=== PATIENT | male | born 1975 | race Caucasian/White ===

== ENCOUNTER → 2017-12-21 11:45 | Outpatient (CLI) | payer MEDICAID, SELFPAY ==
--- NOTE | 2017-12-21 11:45 | DT_ITS ---
This patient was seen during an EMR downtime December 18, 2017 - December 25, 2017. This patient may have a combination of paper and electronic documentation or all paper documentation. All documentation is viewable within the e-chart portion of [facility] for each patient visit.
--- NOTE | 2017-12-21 11:55 | MRI_ITS ---
STUDY: MRI LEFT KNEE REASON FOR EXAM: Left knee pain, unsteady gait, prior surgery. TECHNIQUE: Standardized fat and water weighted pulse sequences were obtained in all 3 orthogonal planes. COMPARISON: None. FINDINGS: There is diffuse tearing of the medial meniscus with a fragment displaced superior to the anterior horn of the medial meniscus (proton-density coronal images 24, 25) and a small fragment at the superior aspect of the posterior horn of the medial meniscus (proton-density sagittal image 11). There is peripheral subluxation of the medial meniscus. There is arthrosis of the medial femorotibial compartment with marginal osteophytes and chondral thinning (T2 sagittal image 8). Normal medial femoral condyle and tibial plateau. Normal medial collateral ligamentous complex (MCL). Normal distal semimembranosus, gracilis and semitendinosus tendons. Normal lateral meniscus. Normal hyaline cartilage of the lateral femorotibial compartment. Normal lateral femoral condyle and tibial plateau. Normal proximal tibiofibular articulation. Normal lateral collateral (fibular) ligament. Normal popliteus tendon. Normal biceps femoris tendon. There is a chronic tear of the anterior cruciate ligament (proton-density coronal images 14, 15). Normal posterior cruciate ligament (PCL). Normal congruent patellofemoral articulation. There is arthrosis of the patellofemoral compartment with small marginal osteophytes and partial-thickness chondral loss of the femoral trochlea (T2 sagittal images 13, 14). Normal medial and lateral patellar retinaculum. Normal visualized quadriceps tendon. There are postoperative changes from patellar realignment. Normal Hoffa's fat pad. There is a moderately large joint effusion. There is a mildly thickened medial patellar plica (T2 axial image 13). The soft tissues are unremarkable. The otherwise visualized osseous structures are unremarkable. MRI/Lower Ext Joint Only (Routine) IMPRESSION: Medial meniscal tear. Chronic anterior cruciate ligament tear. Arthrosis of the medial femorotibial and patellofemoral compartments. Joint effusion. Mildly thickened medial patellar plica. Electronically Signed: Ryder M. Burrell, MD at 15:08 EDT Tel , Service support ,
== END ==
PROVIDERS: Family Provider Family Medicine; PCP Family Medicine; Visit Provider Family Medicine
DX: M25.562 Pain in left knee (principal); R26.81 Unsteadiness on feet
CPT/HCPCS: 73721

== ENCOUNTER 2017-12-31 23:25 | Emergency (ER) | payer MEDICAID, SELFPAY ==
[2017-12-31 23:26] VITALS: BP 143/103; PULSE 91; RESP 16; TEMP 36.4; O2SAT 98; BMI 29.0
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
[2017-12-31] MEDS: Ziprasidone IM 20 MG/ML VIAL IM (23:56)
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
--- NOTE | 2017-12-31 23:58 | DCINST.ED_ITS ---
ED Disposition - Plan for ED Patient: Disposition: Home or Assisted Living Chief Complaint: Mental Health Instructions: ED Schizophrenia General Referrals: [facility] [Primary Care Provider] - As soon as possible Additional Instructions: Follow up with the medical operations supervisor of [facility] director for medication adjustments as needed.
[2018-01-01 01:01] VITALS: PULSE 89; RESP 14; O2SAT 98
--- NOTE | 2018-01-01 01:04 | ED.RN ---
REPORT GIVEN TO ECF NURSE AT PT BEDSIDE. PT GIVEN PILLOW, AND IS RESTING COMFORTABLY. THE NURSE FROM THE FACILITY REPORTS IT IS NOT NECESSARY TO CALL [facility] AND GIVE REPORT SINCE SHE WILL BE CARING FOR THE PT.
--- NOTE | 2018-01-01 01:19 | NURSING ---
[facility] WILL BE HERE WITHIN AND HOUR AND HALF TO 2 HOURS
== END 2018-01-01 02:23 | disposition home or self-care (01) ==
LOC: ED 01-01 00:20
PROVIDERS: Emergency Provider Emergency Medicine; Family Provider Family Medicine; PCP Family Medicine
DX: R45.6 Violent behavior (principal); F31.9 Bipolar disorder, unspecified; F20.9 Schizophrenia, unspecified; F43.10 Post-traumatic stress disorder, unspecified; F03.90 Unspecified dementia, unspecified severity, without behavioral disturbance, psychotic disturbance, mood disturbance, and anxiety; Z87.820 Personal history of traumatic brain injury; Z79.82 Long term (current) use of aspirin; Z79.899 Other long term (current) drug therapy
CPT/HCPCS: 96372; 99285; J3486

== ENCOUNTER 2018-01-19 15:42 | Emergency (ER) | payer MEDICAID, SELFPAY ==
[2018-01-19 15:45] VITALS: BP 129/96; PULSE 101; RESP 16; TEMP 36.7; O2SAT 100; BMI 28.9
--- NOTE | 2018-01-19 16:08 | EKG12_ITS ---
Test Reason : Blood Pressure : / mmHG Vent. Rate : 118 BPM Atrial Rate : 118 BPM P-R Int : 130 ms QRS Dur : 100 ms QT Int : 320 ms P-R-T Axes : 042 038 016 degrees QTc Int : 448 ms Poor data quality, interpretation may be adversely affected Sinus tachycardia Otherwise normal ECG Confirmed by FRITZ THAPA, GABRIELE ([id number]), staff editor DEAN VELAZQUEZ ([id number]) on 01/22/2018 3:22:23 PM Referred By: INO Confirmed By:GABRIELE HU MD
--- NOTE | 2018-01-19 16:13 | ED.DCSUM_ITS ---
- ER Visit Summary Date of Service: 01/19/18 Chief Complaint: Agitation History of Present Illness: The patient is a 42 M with a history of schizoaffective disorder and paranoid delusions. He has been increasingly agitated and combative at his intermediate today. He received 5 mg of Haldol and had no improvement. Patient has no complaints other than he wants to leave and go back to [place]. Denies suicidal thoughts. Physical Examination: Vital signs unremarkable. Afebrile. Head and neck atraumatic. Heart regular. Lungs clear. Abdomen soft. Moves all extremities. No obvious trauma or deformities. No focal or lateralizing neurologic findings grossly. He is mildly agitated, but redirectable. Test Results: Laboratory studies, urinalysis, and EKG pending. Emergency Department Course and Treatment: Patient has a history of paranoid schizoaffective disorder. He is increasingly agitated and combative. He was agreeable to treatment with IM Ativan and Benadryl. Will provide medical clearance and discuss with crisis counselor. Laboratory studies, tox, and alcohol were unremarkable. Patient refused EKG because the leads were about his chest hair. I have low suspicion for dysrhythmia or emergency abnormalities on his EKG. I do not believe it is appropriate to sedate him or perform this against as well. Patient was monitored and had no chest pain, shortness of breath, palpitations, or any other symptoms. Crisis counselor spoke with the patient. I believe he would benefit from hospitalization. We are having trouble reaching his guardian. Once we get a hold a guardian, he may be transferred for further psychiatric care. He is cleared from a medical standpoint. Treatment Plan: As above Disposition: Transfer pending crisis evaluation Impression: 1. Psychosis This note was generated with [employer] dictation software. It may contain incorrect words, spelling, and punctuation that were not noted in review of the chart prior to signing ED Disposition - Plan for ED Patient: Chief Complaint: Mental Health Referrals: [facility] [Primary Care Provider] -
--- NOTE | 2018-01-19 16:18 | NURSING ---
NO OLD EKGS
[2018-01-19] MEDS: DiphenhydrAMINE 50 MG/ML Syringe 25 MG IM (16:20)
[2018-01-19] MEDS: LORazepam 2 MG/ML Syringe IM (16:20)
[2018-01-19 16:26] LABS: Bacteria 0 SEEN /hpf (None Seen); Mucous, Urine 0 SEEN /hpf (<or=2+); Red Blood Cells-Urine 0 SEEN /hpf (0-5); Squamous Epithelial Cells - UA 0 SEEN /hpf (0-5); White Blood Cells 0 SEEN /hpf (0-5)
[2018-01-19 16:40] LABS: Color, Urine Yellow (Yellow); Glucose, Dipstick Normal (Normal); Ketone-Dipstick Negative (Negative); Leukocyte Esterase-Dipstick Negative /ul (Negative); Nitrite-Dipstick Negative (Negative); Occult Blood-Urine Negative /ul (Negative); Protein-Dipstick 15 mg/dl (Negative); Urine Bilirubin Dipstick Negative (Negative); Urine Clarity Clear (Clear); Urine Urobilinogen Normal (Normal)
--- NOTE | 2018-01-19 16:50 | CPS ---
Patient refusing EKG at this time. Dr Terrazas notified.
[2018-01-19 17:04] LABS: Absolute Lymphocyte Count 1.34 X10^3/ul (0.83-4.51); Basophil# 0.01 X10^3/uL; Basophil% 0.2 % (0-1); Eosinophil# 0.06 X10^3/uL; Hematocrit 37.7 % (40-54); Hemoglobin 13.4 g/dl (13.0-16.5); Lymphocyte # 1.34 X10^3/ul (4.0); Lymphocyte % 22.2 % (19-41); Mean Corp Hgb Conc 35.5 g/gl (32-36); Mean Corpuscular Hgb 30.2 pg (27.0-32.0); Mean Corpuscular Volume 84.9 fL (80-94); Mean Platelet Vol. 9.5 fl (6.2-12.0); Monocyte# 0.63 X10^3/uL; Monocyte% 10.4 % (0-10); Neutrophil # 3.99 X10^3/uL (2.7-7.7); POSITIVE COUNT NO; POSITIVE DIFFERENTIAL NO; POSITIVE MORPHOLOGY NO; Platelet Count 164 K/mm3 (150-450); RBC Distribution Width CV 13.5 % (11.6-14.6); RBC Distribution Width SD 41.9 fl (35.1-43.9); Red Blood Count 4.44 M/mm3 (4.6-6.2)
[2018-01-19 17:09] LABS: ALB/GLOB Ratio 1.2 RATIO (0.9-2.4); AST(SGOT) 26 U/L (15-37); Alanine Aminotransfer ALT/SGPT 22 U/L (16-61); Alkaline Phosphatase 76 U/L (45-117); Anion Gap 11 (5-15); BUN 11 mg/dL (7-18); Calcium,Total 8.9 mg/dL (8.5-10.1); Chloride 101 mmol/L (98-107); Creatinine, Serum 0.92 mg/dL (0.70-1.30); EST Glomerular Filtration Rate 96 mL/min (>60); Est Glom Filt Rate - Afr Amer 116 mL/min (>60); Estimated Creatinine Clearance 118.21 ml/min; Globulin 3.3 g/dL (2.2-4.2); Glucose 131 mg/dL (74-106); Potassium 4.3 mmol/L (3.5-5.1); Protein, Total 7.3 g/dL (6.4-8.2); Sodium Level 137 mmol/L (136-145)
[2018-01-19 17:28] LABS: Amphetamine Urine VISTA NEGATIVE (<1000 ng/mL); Barbiturate Urine VISTA NEGATIVE (< 200 ng/mL); Benzodiazepine Urine VISTA NEGATIVE (< 200 ng/mL); Cocaine Urine VISTA NEGATIVE (< 300 ng/mL); Ecstacy Urine VISTA NEGATIVE (< 500 ng/mL); Methadone Urine VISTA NEGATIVE (< 300 ng/mL); PCP Urine VISTA NEGATIVE (< 25 ng/mL); THC Urine VISTA NEGATIVE (< 50 ng/mL); Vista UDS pH Range 6
--- NOTE | 2018-01-19 17:58 | NURSING ---
CALLED CRISIS FOR
--- NOTE | 2018-01-19 18:17 | NURSING ---
TETE, ARI, CALLED BACK. SHE WILL BE HERE SHORTLY
[2018-01-19 19:00] VITALS: RESP 19
[2018-01-19 20:00] VITALS: RESP 18
[2018-01-19 21:00] VITALS: RESP 18
[2018-01-19 22:00] VITALS: RESP 18
[2018-01-19] MEDS: LORazepam 1 MG Tablet PO (22:56)
[2018-01-19] MEDS: DiphenhydrAMINE 25 MG Capsule 50 MG PO (22:56)
[2018-01-19 23:00] VITALS: RESP 20
[2018-01-20] VITALS (19 sets, daily range): BP systolic 108–167; BP diastolic 72–110; PULSE 53–142; RESP 12–28; TEMP 36.8; O2SAT 94–100
[2018-01-20] MEDS: Ziprasidone IM 20 MG/ML VIAL 10 MG IM (00:58)
[2018-01-20 02:39] LABS: Valproic Acid (Depakene) Level 61 ug/mL (50-100)
--- NOTE | 2018-01-20 05:39 | NURSING ---
WHILE ATTEMPTING TO CHANGE PATIENTS CLOTHING AND BED AFTER HE SOILED HIMSELF, PT SPIT SEVERAL TIMES AT A NURSE.
[2018-01-20] MEDS: Benztropine 2 MG Tablet 1 MG PO ×3 (06:42→23:41)
[2018-01-20] MEDS: clonazePAM 1 MG Tablet PO ×2 (06:42→23:42)
[2018-01-20] MEDS: traZODone 50 MG Tablet PO (06:42)
[2018-01-20] MEDS: Aspirin 81 MG TAB.CHEW PO (06:43)
[2018-01-20] MEDS: OXcarbazepine 300 MG Tablet PO ×2 (06:43→23:41)
[2018-01-20] MEDS: Haloperidol Lactate 5 MG/ML Vial 10 MG IM (06:59)
[2018-01-20] MEDS: DiphenhydrAMINE 50 MG/ML Syringe 25 MG IM (06:59)
[2018-01-20] MEDS: Ziprasidone IM 20 MG/ML VIAL IM ×2 (08:35→18:01)
--- NOTE | 2018-01-20 09:21 | ED.RN ---
DISCUSSED WITH PT, POSSIBILITY OF REMOVING RESTRAINTS. AGREEANCE MADE BT THIS NURSE AND PT TO CALM YELLING AND BELIGERANT OUTBURSTS, AND ONE RESTRAINT AT A TIME WILL BE REMOVED. RLE RESTRAINT UNLOCKED AT THIS TIME.
--- NOTE | 2018-01-20 09:57 | ED.RN ---
GIVEN DRINK OF POP, VS OBTAINED, LUE REMOVED FROM RESTRAINTS
--- NOTE | 2018-01-20 11:20 | ED.RN ---
PAT WITH CRISIS IS TOUCHING BASE WITH [facility] AND WILL CALL US BACK
--- NOTE | 2018-01-20 11:27 | ED.RN ---
PER PAT WITH CRISIS; [facility] NEVER RECEIVED AN EKG FROM US I RE-FAXED AT [id number]
--- NOTE | 2018-01-20 13:16 | PCA ---
[employer] WORKER CALLED [facility] PT CHART IS UP FOR REVIEW DUE TO TBI, [facility] WILL CALL ONCE THEY HAVE DECISION
[2018-01-20 20:22] LABS: CPK Total, Creatine Kinase 861 U/L (39-308)
[2018-01-20] MEDS: DiphenhydrAMINE 25 MG Capsule 50 MG PO (20:54)
[2018-01-20] MEDS: LORazepam 1 MG Tablet 2 MG PO (20:54)
[2018-01-20] MEDS: 0.9% Normal Saline 1,000 ML 1000 ML IV ×2 (21:25)
[2018-01-21] MEDS: Ondansetron 4 MG/2 ML Vial IV (01:34)
[2018-01-21] MEDS: Ketamine HCl 500 MG/5 ML Vial 199 MG IV (01:35)
[2018-01-21 08:00] VITALS: BP 125/74; PULSE 83; RESP 20; O2SAT 100
--- NOTE | 2018-01-21 08:27 | ED.RN ---
BREAKFAST TRAY DELIVERED. PT DENIES FURTHER NEEDS AT THIS TIME.
[2018-01-21] MEDS: Benztropine 2 MG Tablet 1 MG PO ×3 (09:31→20:35)
[2018-01-21 10:37] LABS: CPK Total, Creatine Kinase 1235 U/L (39-308)
[2018-01-21] MEDS: clonazePAM 1 MG Tablet PO ×2 (12:13→20:36)
[2018-01-21] MEDS: OXcarbazepine 300 MG Tablet PO ×2 (12:13→20:36)
[2018-01-21] MEDS: traZODone 50 MG Tablet PO ×2 (12:13→20:36)
[2018-01-21] MEDS: Aspirin 81 MG TAB.CHEW PO (12:13)
[2018-01-21 14:02] VITALS: BP 153/80; PULSE 80; RESP 18; TEMP 36.8; O2SAT 99
--- NOTE | 2018-01-21 16:30 | ED.RN ---
spoke with pharm and stated ok to give Jorge Luisdon around 1999 with snack- see MAR
[2018-01-21] MEDS: LORazepam 1 MG Tablet 2 MG PO ×2 (16:42→20:36)
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
[2018-01-21 17:39] LABS: CPK Total, Creatine Kinase 1390 U/L (39-308)
[2018-01-21 18:18] VITALS: BP 153/104; PULSE 86; RESP 18; O2SAT 97
[2018-01-21 20:39] VITALS: BP 167/94; PULSE 101; RESP 16; O2SAT 98
--- NOTE | 2018-01-21 21:03 | ED.RN ---
spoke with SUMAYA Wright at [facility] to ok pt return. pt took HS meds with no difficulty.
== END 2018-01-21 21:02 ==
PROVIDERS: Emergency Medicine; Emergency Provider Emergency Medicine; Family Provider Family Medicine; PCP Family Medicine
DX: F29 Unspecified psychosis not due to a substance or known physiological condition (principal); F20.0 Paranoid schizophrenia; F43.10 Post-traumatic stress disorder, unspecified; J44.9 Chronic obstructive pulmonary disease, unspecified; Z79.82 Long term (current) use of aspirin; Z79.899 Other long term (current) drug therapy
CPT/HCPCS: 36415; 80053; 80164; 80307; 80320; 81001; 82550; 85025; 93005; 96361; 96372; 96374; 96375; 99284; J7030; A4216; G0480; J2405; J3486

== ENCOUNTER → 2018-03-20 16:27 | Outpatient (CLI) | payer MEDICAID, SELFPAY ==
[2018-03-20 17:01] LABS: Valproic Acid (Depakene) Level 114 ug/mL (50-100)
== END ==
PROVIDERS: Visit Provider Family Medicine
DX: R56.1 Post traumatic seizures (principal)
CPT/HCPCS: 80164; 82140

== ENCOUNTER → 2020-03-02 | Outpatient (CLI) | payer MEDICAID, SELFPAY ==
--- NOTE | 2020-03-02 10:20 | MRI_ITS ---
STUDY: MRI LEFT KNEE REASON FOR EXAM: Male, 44 years old. Frequent falls. Chronic knee pain. TECHNIQUE: Standardized fat and water weighted pulse sequences were obtained in all 3 orthogonal planes. COMPARISON: None. FINDINGS: Inhomogeneous fat saturation. Severe tricompartmental osteoarthritis with grade 4 cartilage loss. No acute fracture line. No acute dislocation. Multiple osteophytes. Multiple osteochondral lesions measuring up to a maximum diameter of 1 cm (sagittal image 20 series 4). Medial meniscal maceration. Lateral meniscus degeneration with posterior horn free edge tear and additional rupture of the posterior root ligament (sagittal image 21 series 4 and sagittal image 26 series 3). Chronic medial collateral ligament sprain with thickening (coronal image 17 series 5). Chronic anterior cruciate ligament tear. Extensive posterior cruciate ligament degeneration with intrasubstance tear (sagittal image 16 series 4). Massive joint effusion. Moderate-sized cyst. Soft tissue swelling. Normal distal semimembranosus, gracilis and semitendinosus tendons. Normal proximal tibiofibular articulation. Normal lateral collateral (fibular) ligament. Normal popliteus tendon. Normal biceps femoris tendon. Normal medial and lateral patellar retinaculum. Quadriceps tendon enthesophyte. Normal patellar tendon. Normal Hoffa''s fat pad. MRI/Lower Ext Joint Only (Routine) IMPRESSION: Medial meniscal maceration Lateral meniscal degeneration with posterior horn tear Chronic ACL tear Severe PCL degeneration with intrasubstance tear Chronic MCL sprain with thickening Severe tricompartmental osteoarthritis Massive joint effusion, moderate sized popliteal cyst and mild soft tissue swelling Electronically Signed: Jatin Munoz DO at 11:37 EDT Tel , Service support ,
== END | disposition home or self-care (01) ==
PROVIDERS: PCP Family Medicine; Referring Provider Specialist; Visit Provider Specialist
DX: M25.569 Pain in unspecified knee (principal); G89.29 Other chronic pain
CPT/HCPCS: 73721

== ENCOUNTER 2020-06-10 10:15 | Day surgery (SDC) | payer MEDICAID, SELFPAY ==
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
[2020-06-10] VITALS (11 sets, daily range): BP systolic 111–164; BP diastolic 62–89; PULSE 79–102; RESP 16; TEMP 36.1–36.4; O2SAT 96–100; BMI 29.7
[2020-06-10] MEDS: Lactated Ringers 1,000 ML 100 ML IV ×2 (10:55→15:14)
[2020-06-10] MEDS: Cefazolin 2 GM in 0.9% Normal Saline 100 ML IV (11:28)
--- NOTE | 2020-06-10 12:15 | RAD_ITS ---
STUDY: X-RAY - LEFT TIBIA AND FIBULA REASON FOR EXAM: Male, 44 years old. Hardware removal. TECHNIQUE: 8 intraoperative view(s) of the tibia and fibula were obtained. COMPARISON: None. FINDINGS: A limited intraoperative C-arm films were performed as the patient has undergone hardware removal from the tibia. No intraoperative consultation is noted. RAD/Tibia & Fibula 2 Views IMPRESSION: Intraoperative studies show hardware removal from the tibia Electronically Signed: David Johnson MD at 9:10 EST , Service support ,
--- NOTE | 2020-06-10 14:34 | PCM.OPRPT ---
Report of Operation Date of Procedure: 06/10/20 Pre-Operative Diagnosis: Painful hardware left tibia Post-Operative Diagnosis: Painful hardware left tibia Surgery/Procedure Performed:: Removal left tibial nail Description of Surgical Findings:: Entire nail and locking screws were removed. The case took 3 hours from incision to skin closure due to need for special instrumentation to remove the small nail. neurosurgery physician: Rocky Navarrete Type of Anesthesia:: General Anesthesiologist: Clay Rutledge Special Medications: 2 g Ancef at incision, additional 2 g after 2 and half hours of incision time Specimen's removed: Tibial reamings Estimated Blood Loss (mL): 150 Fluids Replaced: 2 L crystalloid Description of Procedure: On the day of the procedure patient left leg was marked in the preoperative area. Patient was brought back to the operating room the transfer the table in supine position. Anesthesia assumed control of the C-spine and airway and remained in control throughout the remainder of the procedure. Anesthesia was administered we did use a general anesthetic. All bony prominences identified well-padded. At this time a timeout was called and when agreed upon the side, the site, she is to be performed, patient's identity and antibiotics given. At this time we were able to manipulate the knee and obtain a exam under anesthesia. Patient's significant pain and mental illness have prevented a good stable start exam. Patient certainly had anterior posterior instability of the knee however he had good endpoint with medial collateral lateral collateral testing. He had significant lateral subluxation of the patella with flexion of the knee. Patient was appropriately protected by lead. Bump was placed underneath the left hip. Tourniquet was placed on left upper thigh. After patient was adequately positioned left lower extremity was prepped in a sterile fashion while the surgeon scrubbed. Upon reentering the room the left lower extremity was draped in a standard orthopedic fashion. The incision was marked out. Esmarch bandage was used to extend at the extremity tourniquet was placed up to 250 mmHg. As we had previously called a timeout x-ray was used to confirm the placement of the screws using hemostats. Once we did this we made incisions medially to extract all 4 interlocking screws. Proximal incision was made first and 2 screws were extracted. Distal incision was then made and the distal screw was removed and the proximal screw was loosened up. Initially it had stripped we had to find a more rigid screwdriver in addition we had a bur around some of the bone. This took some extra time. Once it is been adequately loosened we direct our attention to the knee. Incision was made over the distal part of the patella tendon. A medial parapatellar arthrotomy was made and we were able to visualize the proximal tibia. Patient had significant anterior subluxation of the tibia with knee flexion and lateral subluxation of the patella. At this time we used a live x-ray to verify the position of the nail which was underneath bone. Once we did this we rongeured down to the nail and we were able to bur around the bone. We reamed the proximal part of the bone. At this time we found that this was a very small nail. The regular extractor bolt did not readily cross thread. We attempted to use multiple extraction devices. We also burred around the proximal nail. Attempting to find the appropriate extraction device this took significant amount of time. We try to drill down the central portion and place a 2 guidewires however due to the bony overgrowth inside the nail this cannot be done. Finally we used metal cutting bur around the proximal portion in order to open it up and then we were able to place the extractor bolt and cross threaded. Once we did this both could be removed using a back slap. Once this was done we reamed to 11 and half millimeters and send reamings in the intramedullary canal for culture. The wound was then copiously got normal saline. Due to some metal debris in the soft tissue we did debride this sharply prior to closure. All wounds were irrigated with a chlorhexidine lavage and normal saline copious amounts. The medial parapatellar arthrotomy was closed with #1 Vicryl interrupted sutures. Skin closure for all areas was closed with 2-0 Vicryl and final skin closure was done with chapito. Sterile silver dressings were placed on all incisions. The was wrapped with additional ABDs and a compressive dressing. Patient was then awakened by anesthesia and transferred the PACU for recovery. Postop plan: We will follow cultures closely. Patient is weightbearing as tolerated. Follow-up in the office in 2 weeks to have sutures/chapito removed. He is on Eliquis for DVT prophylaxis. Eventual plan is to proceed with a total knee replacement at this time patient does appear to have stable medial collateral ligaments. We will have a hinged knee replacement for backup. A CT scan will need to be performed in order to adequately plan for disrupted bony structures. Modifier 22: It should be noted that 3 separate incisions were made for the nail removal as well as for the proximal interlocking screws in the distal interlocking screws. In addition due to the well fixed nature of this implant and the chronicity of this implant it took an excessive amount of time. As described above it took significant amount of time to remove one of the distal interlocking screws as the screw had stripped and there was significant bone overgrowth. In addition removing the nail took additional time. In general this procedure was anticipated to take about 60 minutes. Overall took 180 minutes due to the complexity of the nail removal and stripped interlocking screw. - Complications No intraoperative complications - Admit VTE Documentation VTE Present on Admission: No VTE Mechan Device Prophylaxis: SCD's, Thigh High EDITA Hose VTE Pharm Prophylaxis ordered?: Yes
[2020-06-10] MEDS: Lactated Ringers 1,000 ML 200 ML IV (14:35)
[2020-06-10] MEDS: Ketorolac 30 MG/ML Syringe IV (14:39)
--- NOTE | 2020-06-10 14:54 | RAD_ITS ---
STUDY: X-RAY - LEFT TIBIA AND FIBULA REASON FOR EXAM: Male, 44 years old. post op, hardware removal. TECHNIQUE: 4 view(s) of the tibia and fibula were obtained. COMPARISON: None. FINDINGS: Patient is postop from hardware removal from the proximal and distal tibia. Chondromalacia noted in the mid shafts of the tibia and fibula consistent with healed fractures. Lucencies noted in the proximal and distal tibia from hardware removal. No demonstrated acute fracture or suspicious osseous lesion. Postoperative soft tissue swelling and subcutaneous emphysema noted. RAD/Tibia & Fibula 2 Views IMPRESSION: Status post hardware removal from the left tibia. No postoperative complications noted. Healed fractures noted in the mid shafts of the tibia and fibula. Electronically Signed: David Johnson MD at 9:14 EST , Service support ,
== END 2020-06-10 17:05 | disposition home or self-care (01) ==
LOC: SDC 10:15 → AC 10:15
PROVIDERS: PCP Family Medicine; Referring Provider Specialist; Visit Provider Specialist
PROC: (CPT 20680; principal; 2020-06-10 12:00)
DX: T84.84XA Pain due to internal orthopedic prosthetic devices, implants and grafts, initial encounter (principal); Y83.1 Surgical operation with implant of artificial internal device as the cause of abnormal reaction of the patient, or of later complication, without mention of misadventure at the time of the procedure; J44.9 Chronic obstructive pulmonary disease, unspecified; K21.9 Gastro-esophageal reflux disease without esophagitis; M17.12 Unilateral primary osteoarthritis, left knee; I10 Essential (primary) hypertension; F20.9 Schizophrenia, unspecified; F43.10 Post-traumatic stress disorder, unspecified; G40.909 Epilepsy, unspecified, not intractable, without status epilepticus; F17.210 Nicotine dependence, cigarettes, uncomplicated; Z79.899 Other long term (current) drug therapy; Z87.820 Personal history of traumatic brain injury; Z79.1 Long term (current) use of non-steroidal anti-inflammatories (NSAID)
CPT/HCPCS: 01360; 20680; 73590; 76000; 87015; 87070; 87075; 87102; 87116; 87176; 87205; 87206; J7040; J7120

== ENCOUNTER → 2020-09-28 12:08 | Outpatient (CLI) | payer MEDICAID, SELFPAY ==
[2020-06-10 10:36] VITALS: BMI 29.7
--- NOTE | 2020-09-28 12:11 | CT_ITS ---
STUDY: CT LEFT LOWER EXTREMITY WITHOUT CONTRAST REASON FOR EXAM: Left knee pain, surgical planning. TECHNIQUE: Transaxial CT imaging of the left lower extremity was performed. Coronal and sagittal images were reformatted. Individualized dose optimization techniques were used for this CT. COMPARISON: Radiographs of the tibia and fibula 06/10/2020. FINDINGS: Knee: There are marginal osteophytes and severe joint space narrowing of the medial femorotibial compartment (coronal reconstruction 33). There are marginal osteophytes and moderate joint space narrowing of the lateral femorotibial compartment (coronal reconstruction 37). There is lateral tilt and lateral subluxation of the patella (axial image 311). There are marginal osteophytes of the patella and subchondral cystic change of the patella. Normal proximal tibiofibular articulation. There is a large joint effusion. The quadriceps tendon is grossly normal. The patellar tendon is grossly normal. Normal Hoffa''s fat pad. There are postoperative changes of the tibia from previous intramedullary misael. Hip: Unremarkable left hip joint. Ankle: There is mild arthrosis of the talonavicular articulation with dorsal osteophytes and mild joint space narrowing (sagittal reconstruction 24). There are bone islands in the talar dome and body. CT/Extremity Lower without Contra IMPRESSION: Arthrosis of the medial and lateral femorotibial compartments. Lateral tilt and lateral subluxation of the patella. Knee joint effusion. Electronically Signed: Ryder Burrell MD at 13:15 EDT Tel , Service support ,
== END ==
PROVIDERS: PCP Family Medicine; Referring Provider Specialist; Visit Provider Specialist
DX: T84.84XD Pain due to internal orthopedic prosthetic devices, implants and grafts, subsequent encounter (principal)
CPT/HCPCS: 73700

== ENCOUNTER 2020-10-14 05:34 | Day surgery (SDC) | payer MEDICAID, SELFPAY ==
[2020-06-10 10:36] VITALS: BMI 29.7
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
[2020-10-14] VITALS (17 sets, daily range): BP systolic 84–146; BP diastolic 53–104; PULSE 86–112; RESP 16–20; TEMP 35.8–36.7; O2SAT 92–100; BMI 32.6
[2020-10-14] MEDS: Lactated Ringers 1,000 ML 999 ML IV ×2 (06:05→09:00)
[2020-10-14] MEDS: Gabapentin 600 MG Tablet PO (06:22)
[2020-10-14] MEDS: Celecoxib 200 MG Capsule 400 MG PO (06:22)
[2020-10-14] MEDS: Acetaminophen 500 MG Tablet 1000 MG PO (06:23)
--- NOTE | 2020-10-14 06:49 | RAD_ITS ---
STUDY: X-RAY - LEFT KNEE REASON FOR EXAM: Status post left total knee arthroplasty. TECHNIQUE: 2 view(s) of the knee. COMPARISON: CT images 09/28/2020. FINDINGS: There is a left total knee arthroplasty without evidence of complication. There is postoperative gas in the soft tissues and overlying skin chapito. RAD/Knee 1 or 2 Views IMPRESSION: Uncomplicated left total knee arthroplasty. Electronically Signed: Ryder Burrell MD at 14:05 EDT Tel , Service support ,
[2020-10-14] MEDS: Cefazolin 2 GM in 0.9% Normal Saline 100 ML IV (07:22)
[2020-10-14] MEDS: dexAMETHasone 10 MG/ML Vial IV (07:58)
--- NOTE | 2020-10-14 09:37 | PCM.OPRPT ---
Report of Operation Date of Procedure: 10/14/20 Pre-Operative Diagnosis: Left knee posttraumatic osteoarthritis. Left knee severe patella maltracking Post-Operative Diagnosis: Left knee posttraumatic osteoarthritis. Left knee severe patella maltracking Surgery/Procedure Performed:: Left total knee replacement posterior stabilized robotic assisted Description of Surgical Findings:: Patient had stable knee with temple of patella tracking. Patella tracking likely related to now rotation of the tibia and femur as it was to the femur intraoperatively tracked significantly medial and posterior. Once the femoral position was stabilized the patella tracking improved. creative resource manager: Kaylin Helm Type of Anesthesia:: General Anesthesiologist: Jatin Brunner Special Medications: 2 g Ancef, 1 g TXA at incision, 1 g TXA closure, 10 mg Decadron, joint cocktail (5 mg Duramorph, 30 mL of 0.5% Ropivicaine, 1000 units of epinephrine, 30 mg of Toradol) Specimen's removed: Bony cuts Estimated Blood Loss (mL): 125 Fluids Replaced: 1200 Description of Procedure: Implants used: 1. Dixie size 6 triathlon posterior stabilized distal femoral press-fit component 2. Dixie size 5 press-fit tritanium tibial baseplate 3. Dixie X3 13 mm posterior stabilized polyethylene 4. Dixie X3 35 asymmetric patella Brief history operative indications: 45-year-old m with history of left knee posttraumatic osteoarthritis with radiographic findings with loss of joint space, osteophyte formation and subchondral sclerosis, lateral subluxation of the tibia. Failed conservative measures as mentioned in the H&P. Discussion of total knee arthroplasty as well as risk and benefits were discussed the patient including but not limited to blood loss, DVTs, PEs, neurovascular damage, general risk of anesthesia including loss of life, and stiffness or instability were discussed with patient. Patient demonstrated understanding and was able to sign informed consent. Procedure: On the date of procedure patient's left lower extremity was marked in the preoperative area. The patient was then taken back to the operating room where the patient was placed on the table in the supine position. All bony prominences were identified a well-padded. Anesthesia assumed control of the C-spine and airway and remained controlled throughout the remainder of the procedure. A tourniquet was placed on the left upper thigh and the leg was prepped in a sterile fashion. The surgeon then scrubbed at this time .Upon reentering the room left lower extremity was draped in a standard orthopedic fashion. A timeout was then called and everyone agreed upon the side, the site, the procedure to be performed, patient's identity and antibiotics given. Esmarch bandage was used to exsanguinate the extremity and the tourniquet was placed up to 250 mmHg with the knee in flexion. A midline skin incision was made and sharp dissection was taken down through skin subcutaneous tissue and fat. The standard medial parapatellar incision was made and the patella was subluxed laterally. An Appropriate deep MCL release was done and the fat pad was resected. Based on the patient's previous surgery he had significant synovitis. We performed an aggressive full synovectomy which added additional time to the procedure. Our attention was then directed to the patella. The patella was everted and a flat resection was made. The knee was then flexed up in 2 femoral pins were placed inside the incision and 2 tibial pins were placed inside the incision in the medial tibia bicortically. Once this was completed the 2 checkpoints in the femur and tibia were placed. Knee was then flexed up and the bony landmarks were registered. Once this was completed knee was taken through range of motion and manually stressed allowing us to a plan for an appropriate tibial cut. Based on patient's previous posttraumatic anatomy balancing took additional time. The robotic arm was brought into the field sterilely and checkpoint and saw were registered. Based on the patient's deformity the tibial cut was made 3. At this time the tensioner was then placed in the joint and ligament tension was checked at 90 degrees and full extension. Based on the patient's ligamentous tension appropriate adjustments were made to the operative plan and ligament releases were done. Once we were happy with our operative plan with balanced flexion and extension gaps our attention was directed to the femur. The robot was brought into the field sterilely and registered. Posterior condylar cuts, anterior chamfer cuts and anterior cuts were appropriately made for a size 6 femur. When these were completed the saws were switched out in the distal femoral and posterior chamfer cuts were made. Protecting the soft tissue throughout this time. A size 5 tibial base plate was selected. the knee was flexed to 90 degrees and the soft tissues and posterior osteophytes were removed from the joint. 40 cc of the periarticular injection was injected into the posterior medial corner of the joint. The appropriate trials were then placed on the femur and tibia. A trial polyethylene was trialed to ensure proper balancing and stability of the knee. The appropriate tibial internal rotation was then marked with a bovie. Based on the patient's previous ligamentous injuries we were able to balance stably however we felt appropriate to further stabilize the knee with a posterior stabilized implant. A notch cut was made and we then trialed with the posterior stabilized implants. Our attention was then directed to the patella. The lug holes were drilled and the patella trial was placed. Patellar tracking was checked and deemed appropriate. Once we were happy lug holes were drilled for the femur and trial components were removed. the tibia was subluxed and pinned into place and the keel was punched and drilled appropriately. Final components were verified and opened, and cement was mixed in a vacuum. [employer] Simplex cement was used. The wound was copiously irrigated with normal saline. When the cement was ready the components were impacted into place starting with the tibia, femur and finally cementing the patella. The trial poly component was placed and the knee was placed in full extension. All excess cement was removed in the process. Once the cement had cured the tracking, alignment and balance were verified and a size 13 mm CS polyethylene component was placed. Once the final components were placed a 3-minute dilute Betadine lavage was performed followed by an Irrisept lavage was performed and the wound was copiously irrigated with normal saline solution and the periarticular injection was given. The wound was closed in a layer acevedo fashion using #1 vicryl interrupted sutures for the arthrotomy, 2-0 interrupted Vicryl suture for the subcuticular layer and chapito for final skin closure. A sterile compressive dressing was then placed. The patient was then awakened from anesthesia, transferred to the [facility] and transferred to the PACU for recovery. Post op plan DVT ppx: Eliquis for DVT prophylaxis, thigh high compression stockings Follow up: in office in 2 weeks for wound check PT: to start POD #0 at hospital, outpatient PT should be arranged. Due to the complexity of this case robotic arm was used to assist in the surgery to improve accuracy and clinical outcomes. Modifier 22: Due to the posttraumatic nature of this patient's knee it took additional time. Normal tourniquet time is 40 minutes tourniquet time today was 60 minutes. This is 50% longer than straightforward total knee replacement strictly related to the considerations taken for the posttraumatic bony abnormalities. - Complications No intraoperative complications - Admit VTE Documentation VTE Present on Admission: No VTE Mechan Device Prophylaxis: SCD's, Thigh High EDITA Hose VTE Pharm Prophylaxis ordered?: Yes
[2020-10-14] MEDS: Lactated Ringers 1,000 ML 125 ML IV (11:57)
[2020-10-14] MEDS: Cefazolin 1 GM/50 ML BAG IV (13:00)
--- NOTE | 2020-10-14 13:10 | SUR.PHASEI ---
NOTED 3/4 MEPILEX DRESSING SATURATED & OOZING THROUGH HOLLY WRAP & EDITA HOSE. REINFORCED WITH ABD PADS & NOTIFIED DR AMOS/PIEDAD, RN, WHO STATES TO CHANGE DRESSING PRIOR TO D/C HOME.
== END 2020-10-14 17:00 | disposition intermediate care facility (04) ==
LOC: SDC 05:36 → AC 05:37
PROVIDERS: PCP Family Medicine; Referring Provider Specialist; Visit Provider Specialist
PROC: 0SRD0JZ Replacement of Left Knee Joint with Synthetic Substitute, Open Approach (ICD-10-PCS; CPT 27447; principal; 2020-10-14 07:00)
DX: M17.32 Unilateral post-traumatic osteoarthritis, left knee (principal); S82.202S Unspecified fracture of shaft of left tibia, sequela; W13.4XXS Fall from, out of or through window, sequela; M22.8X2 Other disorders of patella, left knee; M65.9 Synovitis and tenosynovitis, unspecified; G89.18 Other acute postprocedural pain; I10 Essential (primary) hypertension; G40.909 Epilepsy, unspecified, not intractable, without status epilepticus; J44.9 Chronic obstructive pulmonary disease, unspecified; F20.9 Schizophrenia, unspecified; F41.9 Anxiety disorder, unspecified; F31.9 Bipolar disorder, unspecified; F43.10 Post-traumatic stress disorder, unspecified; F17.210 Nicotine dependence, cigarettes, uncomplicated; Z79.82 Long term (current) use of aspirin; Z87.820 Personal history of traumatic brain injury; Z79.1 Long term (current) use of non-steroidal anti-inflammatories (NSAID); Z79.899 Other long term (current) drug therapy
CPT/HCPCS: 01402; 27447; 64447; 76942; S2900; 73560; 97162; C1776; J7120; J2405

== ENCOUNTER 2021-01-28 10:56 | Day surgery (SDC) | payer MEDICAID, SELFPAY ==
[2020-10-14 06:13] VITALS: BMI 32.6
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
[2021-01-28] VITALS (10 sets, daily range): BP systolic 138–156; BP diastolic 84–96; PULSE 91–117; RESP 16–17; TEMP 35.7–36.3; O2SAT 93–100; BMI 31.0
[2021-01-28 11:50] LABS: Bedside Glucose 96 mg/dL (70-110)
[2021-01-28] MEDS: Acetaminophen 500 MG Tablet 1000 MG PO (12:02)
[2021-01-28] MEDS: Lactated Ringers 1,000 ML 999 ML IV ×2 (12:27→15:10)
[2021-01-28] MEDS: Cefazolin 2 GM in 0.9% Normal Saline 100 ML IV (12:45)
[2021-01-28 12:47] LABS: Magnesium 2.2 mg/dL (1.6-2.6)
--- NOTE | 2021-01-28 13:00 | KNEE_PTH ---
PATIENT: JORGE GREGORY LOC: [facility] [place] U#:[id number] AGE/SX: 45/M ROOM: RE01/28/[address]: Dr. Patricio Soto MD : 1975 BED: DIS: 01/28/2021 SPEC #: [id number] RECD: 01/28/21 14:48 STATUS: ROSETTA YOGESH #: [id number] ELIS: 01/28/21 13:[address]: Patricio Soto DEPT: SURGICAL PATHOLOGY RECD BY: Charly Wallace ENTERED: 01/29/21 07:39 SP TYPE: TOTAL KNEE OTHR DR: Zeb Cervantes Tissues: Knee, NOS Procedures: Decalcification bone/plaque Surgery Specimen Level IV HEADER OPERATION: ERAS, knee patellectomy, extensor mechanism reconstruction PRE-OP DIAGNOSIS: Left total knee arthroplasty with recurrent patella dislocation TISSUE SUBMITTED: Left knee patella MICROSCOPIC DIAGNOSIS Left knee patella: Pieces of fibroadipose and dense fibroconnective tissue with reactive changes, granulation tissue reaction and focal calcification. A piece of orthopedic hardware (gross only). YAAKOV:mini 02/01/2021 MICROSCOPIC DESCRIPTION Slides are reviewed. GROSS DESCRIPTION Received in fixative is one container labeled with the patient's name and designated left knee patella. The specimen consists of multiple pieces of rodriges soft to indurated tissue that in aggregate measure 9 x 9 x 3 cm. Also present in the container is a round polymer, orthopedic hardware in the shape of patella which measures 4 x 3.6 x 1.5 cm. A piece of rodriges, indurated soft tissue is also attached to this piece of orthopedic hardware. No mass lesion is identified. The orthopedic hardware is for gross identification only. Senior Software Project Manager sections from the soft tissue is submitted in two cassettes. / YAAKOV:mini 01/29/21 TC:5 CPT: 18939
--- NOTE | 2021-01-28 14:28 | PCM.OPRPT ---
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 Patient had chronic lateral tension requiring significant lateral release of the extensor mechanism due to his chronic patella dislocation. Surgeon: Patricio Soto disposal plant operator: Chin Bajwa Type of Anesthesia: General Anesthesiologist: Fabio Crum Special Medications: 2 g Ancef, 1 g TXA at incision, 1 g TXA closure, 10 mg Decadron, joint cocktail (5 mg Duramorph, 30 mL of 0.5% Ropivicaine, 1000 units of epinephrine, 30 mg of Toradol) Estimated Blood Loss (mL): 25 mL Fluids Replaced: Crystalloid Description of Procedure: On the date of the procedure patient's left knee was marked in the preoperative area. Patient was brought back to the operating room he was transferred to the table in the supine position. Anesthesia assumed control of the C-spine and airway and remained to control throughout the remainder of the procedure. At this time anesthesia anesthetized the patient. All bony prominences were identified well-padded and a bump was placed underneath the left hip. Tourniquet was placed in the left upper thigh and the left lower extremity was prepped in a sterile fashion. Surgeons then scrubbed and upon reentering the room the left lower extremity was draped in a sterile orthopedic fashion. Incision was marked out using the previous incision. Based on the significant keloid of his previous scar this was marked for ellipse and measured at 15 cm of keloid scar. At this time a timeout was called everyone agreed upon the side, the site, the procedure to be performed, patient's identity and antibiotics given. Esmarch bandage was used to exsanguinate the extremity knee was flexed and the tourniquet was placed up to 250 mmHg. At this time the incision was taken down through skin and the 15 cm of keloid tissue was ellipsed. We carefully dissected down to the extensor mechanism and made appropriate medial and lateral flaps. As we dissected down to the extensor mechanism it was clear that the extensor mechanism retinacular repair had not ruptured. It was well-healed. Knee was taken through range of motion and the chronically dislocating patella which he dislocated prior to surgery for his knee replacement showed significant lateral displacement of the VMO where the edge of the VMO stretch to the lateral condyle of the femur. Prior to making any arthrotomy we elected to imbricate using #5 FiberWire the medial tissues. Even with imbrication of these medial tissue significantly the patella continued to dislocate at this point as previously discussed we elected to proceed with the papillectomy. Considering that the previous arthrotomy was well-healed we elected to make a central arthrotomy for the patellectomy me in a traditional patellectomy fashion. Using a sharp knife the central arthrotomy was made and we carefully dissected out the patella. Patella was resected and placed on the back table. Once this was done we imbricated the soft tissues about 4 cm using #5 FiberWire. Doing this we were able to get correction it was maintained to about 70 degrees. We further released laterally obtaining correction that would maintain to at least 90 degrees and beyond. Based on this we proceeded with the imbrication of the tissues: The lateral tissues medially. This was done with #5 FiberWire using #1 Vicryl stay sutures. Prior to tying these mattress sutures a dilute Betadine lavage was performed for 3 minutes after a 1-1/2 L normal saline lavage. Finally irrisept was lavaged to the wound followed by 1-1/2 more liters of normal saline. We did also perform a synovectomy prior to the imbrication. At this point we tied the stay sutures followed by the #5 FiberWire imbrication sutures. Once this was done we then used #5 FiberWire in a Krak?w locking fashion to further imbricate the lateral side to the medial side bringing lateral over top of medial. Once this was done based on the lateral release that was performed we did want to augment some of this proximal lateral area so we used a dermal allograft and sewed this in using #1 Vicryl. Once was done the wound was copiously irrigated out with normal saline. Knee was taken through range of motion to 90 degrees and the extensor mechanism did stay centralized in the knee. Final wound closure was done with #1 Vicryl for deep tissues. Subcuticular stitches were done with 2-0 Vicryl and final skin closure was made with chapito. Sterile dressing was placed. Compressive dressing was placed. And a T ROM brace was placed locked in extension. Patient was then awakened by anesthesia and transferred the PACU for recovery. Postop plan for this patient: Patient will wear the T ROM brace locked in extension for 6 weeks. From weeks 6-12 patient can do range of motion 0-90 with therapy otherwise locked in extension for ambulation. After 12 weeks we will attempt to remove the T ROM brace. Patient needs careful monitoring based on his mental health history. My physician supervisor [employer] ([place]) was a vital part of this case. They were important in appropriate retraction during the case, and protection of soft tissues during dissection and synovectomy. Their intimate knowledge of the case and my steps aided in safe and expedient completion of the procedure as well as appropriate position of the leg during the case. They were also vital in assisting with closure under my direct supervision. Grafts/Implants Used: Dermal allograft
[2021-01-28] MEDS: Ketorolac 30 MG/ML Syringe IV (15:50)
--- NOTE | 2021-01-28 16:10 | SUR.PHASEI ---
AT APPROXIMATELY 1515, EXTENDED CARE FACILITY EQUALIZER OPERATOR BROUGHT TO BEDSIDE TO ASSIST IN CALMING THE PATIENT AND ORIENTING THE PATIENT
[2021-01-28] MEDS: Lactated Ringers 1,000 ML 125 ML IV (16:35)
== END 2021-01-28 17:25 | disposition home or self-care (01) ==
LOC: SDC 10:57 → AC 10:57
PROVIDERS: Anesthesiology; PCP Family Medicine; Referring Provider Specialist; Visit Provider Specialist
PROC: (CPT 27524; principal; 2021-01-28 12:45)
DX: M22.02 Recurrent dislocation of patella, left knee (principal); L91.0 Hypertrophic scar; L90.5 Scar conditions and fibrosis of skin; I10 Essential (primary) hypertension; F20.9 Schizophrenia, unspecified; R56.1 Post traumatic seizures; E07.9 Disorder of thyroid, unspecified; M19.90 Unspecified osteoarthritis, unspecified site; I45.19 Other right bundle-branch block; F43.10 Post-traumatic stress disorder, unspecified; F03.90 Unspecified dementia, unspecified severity, without behavioral disturbance, psychotic disturbance, mood disturbance, and anxiety; F32.9 Major depressive disorder, single episode, unspecified; F41.9 Anxiety disorder, unspecified; F17.210 Nicotine dependence, cigarettes, uncomplicated; Z96.652 Presence of left artificial knee joint; Z79.82 Long term (current) use of aspirin; Z79.899 Other long term (current) drug therapy; Z87.820 Personal history of traumatic brain injury
CPT/HCPCS: 11406; 27350; 82962; 83735; 88305; 88311; J7040; J7120; J2405

== ENCOUNTER → 2021-09-14 | Outpatient (REF) | payer SELFPAY | END | disposition home or self-care (01) | LOC: OLS.AHA 04:00 | PROVIDERS: PCP Family Medicine; Visit Provider Family Medicine | DX: Z79.899 Other long term (current) drug therapy (principal); Z51.81 Encounter for therapeutic drug level monitoring | CPT/HCPCS: 82140 ==

== ENCOUNTER → 2021-11-09 | Outpatient (REF) | payer SELFPAY | END | disposition home or self-care (01) | LOC: OLS.AHA 04:12 | PROVIDERS: PCP Family Medicine; Visit Provider Family Medicine | DX: E72.20 Disorder of urea cycle metabolism, unspecified (principal); F25.0 Schizoaffective disorder, bipolar type; Z51.81 Encounter for therapeutic drug level monitoring; Z79.899 Other long term (current) drug therapy | CPT/HCPCS: 82140 ==

== ENCOUNTER → 2022-02-08 | Outpatient (REF) | payer SELFPAY | END | disposition home or self-care (01) | LOC: OLS.AHA 10:59 | PROVIDERS: PCP Family Medicine; Visit Provider Family Medicine | DX: E72.20 Disorder of urea cycle metabolism, unspecified (principal); F25.0 Schizoaffective disorder, bipolar type; Z51.81 Encounter for therapeutic drug level monitoring | CPT/HCPCS: 82140 ==

== ENCOUNTER 2023-05-06 14:54 | Emergency (ER) | payer MEDICAID, SELFPAY ==
[2023-05-06 14:56] VITALS: BP 137/93; PULSE 94; RESP 18; TEMP 36.5; O2SAT 98; BMI 30.4
--- NOTE | 2023-05-06 15:09 | RAD_ITS ---
STUDY: X-RAY CHEST REASON FOR EXAM: Male, 47 years old. confused TECHNIQUE: Single AP portable view of the chest. COMPARISON: None. FINDINGS: Poor inspiration with some bibasilar atelectasis. There is no demonstrated pleural abnormality. Normal size heart. Normal mediastinum and arpan. Normal visualized pulmonary arteries. Normal visualized aortic arch and descending thoracic aorta. Normal visualized thoracic spine. Normal visualized ribs, clavicles, and shoulders. There is no demonstrated abnormality of the visualized soft tissue structures of the upper abdomen. RAD/Chest 1 View (Portable) IMPRESSION: Poor inspiration with some bibasilar atelectasis. Electronically Signed: Esdras Greenfield MD at 15:49 EDT ,
--- NOTE | 2023-05-06 15:09 | CT_ITS ---
STUDY: CT BRAIN WITHOUT CONTRAST REASON FOR EXAM: Male, 47 years old. change of MS, HISTORY OF TRAUMATIC BRAIN INJURY RADIATION DOSAGE (If Supplied By Facility): CTDIvol = ( 44.99 ) mGy, DLP = ( 846.73 ) mGycm TECHNIQUE: Transaxial CT imaging of the brain was performed without administration of intravenous contrast material. Individualized dose optimization techniques were used for this CT. COMPARISON: No relevant priors. FINDINGS: Normal soft tissue structures. There is hyperostosis frontalis internus. Normal size ventricles and extra-axial spaces for the patient''s age. Normal white matter tracts of the cerebral hemispheres. Normal basal ganglia and thalami. Normal brainstem. Normal cerebellum. There is no intracranial hemorrhage. There are no findings of an acute ischemic infarction. Normal visualized paranasal sinuses. CT/Brain/Head without Contrast IMPRESSION: Normal unenhanced CT scan of the brain. Electronically Signed: Esdras Greenfield MD at 15:54 EDT ,
--- NOTE | 2023-05-06 15:10 | EKG12_ITS ---
Test Reason : ALT LOC Blood Pressure : / mmHG Vent. Rate : 091 BPM Atrial Rate : 091 BPM P-R Int : 142 ms QRS Dur : 094 ms QT Int : 380 ms P-R-T Axes : 014 020 040 degrees QTc Int : 467 ms Normal sinus rhythm Nonspecific T wave abnormality Abnormal ECG Confirmed by RULA THAPA, SOPHIA ([id number]), editor managing newspaper EUNICE CAMARGO ([id number]) on 05/09/2023 12:39:59 PM Referred By: DANIEL Confirmed By:PARTH HORTA MD
--- NOTE | 2023-05-06 15:11 | EX.ED.DYSGE1 ---
HPI History of Present Illness Chief Complaint: Alt LOC Detail of Chief Complaint: Reported mental status change from the extended care facility. Informant: patient Onset/Context/Timing Onset: Today and Yesterday Context: Gradual Onset Timing: Continuous Current Severity: Mild Maximum Severity: Mild Narrative Narrative: 47-year-old male history of dementia, PTSD and schizophrenia. Resident of an extended care facility. Reportedly had decreased mental status since last night. No reported fall or trauma. No fever. Patient denies complaints. He is a limited informant. Prior similar symptoms: Yes Recent Illness/Hospitalization: No PFSH PFSH Medical History Anxiety Delusional disorder Depression Psychosis PTSD (post-traumatic stress disorder) Schizophrenia Smoker Thyroid disease Wears glasses Home Medications Ziprasidone Hcl [Geodon] 80 mg PO TID antipsychotic 12/31/17 [History Last Taken 01/28/21 08:00] aspirin 81 mg tablet,delayed release 81 mg PO DAILY 12/31/17 [History Last Taken 06/03/20] benztropine 1 mg tablet 1 mg PO TID 12/31/17 [History Last Taken 01/28/21 08:00] levothyroxine 88 mcg tablet 88 mcg PO QHS 01/19/18 [History Last Taken Unknown] nabumetone 750 mg tablet 750 mg PO BID 01/19/18 [History Last Taken 06/03/20] oxcarbazepine 300 mg tablet (Trileptal) 900 mg PO QHS 01/19/18 [History Last Taken Unknown] trazodone 50 mg tablet 200 mg PO QHS 01/19/18 [History Last Taken Unknown] clozapine 200 mg tablet 200 mg PO BID 06/04/20 [History Last Taken 01/28/21 08:00] lithium carbonate 300 mg capsule 300 mg PO TID 06/04/20 [History Last Taken 01/28/21 08:00] lorazepam 1 mg tablet 1 mg PO TID 06/04/20 [History Last Taken 01/28/21 08:00] acetaminophen 325 mg capsule 325 mg PO Q6H PRN Fever 10/05/20 [History Last Taken Unknown] acetaminophen 500 mg tablet 500 mg PO TID 10/05/20 [History Last Taken Unknown] cholecalciferol (vitamin D3) 50 mcg (2,000 unit) capsule 2,000 unit PO DAILY 10/05/20 [History Last Taken Unknown] docusate sodium 100 mg capsule 100 mg PO BID 10/05/20 [History Last Taken Unknown] haloperidol 5 mg tablet 5 mg PO TID 10/05/20 [History Last Taken 01/28/21 08:00] lactulose 10 gram/15 mL oral solution 15 ml PO TID 10/05/20 [History Last Taken Unknown] lorazepam 1 mg tablet 1 mg PO Q6H PRN Agitation 10/05/20 [History Last Taken Unknown] lorazepam 2 mg/mL injection solution 1 mg IV Q6H PRN Agitation 10/05/20 [History Last Taken Unknown] magnesium hydroxide 400 mg/5 mL oral suspension 30 ml PO DAILY PRN PRN Constipation 10/05/20 [History Last Taken Unknown] nicotine (polacrilex) 2 mg buccal mini lozenge 2 mg PO Q2H PRN Smoking Cessation 10/05/20 [History Last Taken Unknown] ziprasidone HCl 20 mg capsule 20 mg PO Q6H PRN Agitation 10/05/20 [History Last Taken Unknown] ziprasidone mesylate 20 mg IM Q6H PRN Agitation 10/05/20 [History Last Taken Unknown] doxycycline hyclate 100 mg capsule 100 mg PO BID #14 CAPSULES 10/14/20 [Rx Last Taken Unknown] Allergy/AdvReac Type Severity Reaction Status Date / Time No Known Allergies Allergy Verified 05/06/23 15:17 Social History Smoking Status: Current every day smoker tobacco type: cigarettes ROS ROS ED ROS Narrative Denies recent illness. Review of Systems ROS Unobtainable: due to mental status Constitutional Constitutional ED: Denies chills, fever(s) or subjective Eyes Eyes: Denies blurry vision ENT ENT ED: Denies ear pain Cardiovascular Cardiovascular: Denies chest pain Respiratory/Chest Respiratory/Chest: Denies cough or dyspnea Gastrointestinal Gastrointestinal: Denies abdominal pain, constipation, diarrhea, melena, nausea or vomiting Genitourinary Genitourinary ED: Denies dysuria or hematuria Musculoskeletal Musculoskeletal: Denies arthralgias Integumentary Denies abscess Neurologic Neurologic: Denies headache(s) Psychiatric Psychiatric: Denies anxiety Endocrine Endocrinology: Denies cold intolerance Hematologic/Lymphatic Hematologic/Lymphatic: Reports none Allergic/Immunologic Allergic/Immunologic ED: Denies mouth swelling, tongue swelling or urticaria EXAM Physical Exam Narrative Exam Narrative: 47-year-old male sitting upright in bed. Vital signs are stable and afebrile. Pulse ox 98% on room air no signs hypoxia. Patient is in no distress. He is awake alert. He is answering questions following commands. HEENT exam unremarkable. Mildly dry mucous membranes. Pupils round reactive light. No facial droop. Normal speech. No trauma. Scalp nontender. Neck nontender no meningismus. Lungs clear to auscultation bilaterally. Heart regular rhythm rate about 90 no murmur. Chest wall and ribs nontender. Abdomen soft nontender. No peritoneal signs. Back nontender. Neurologically. He is answering questions following commands. He is a limited informant. Once I told him he realized he was in the hospital. He has 5-5 senior software architect strength bilaterally. Dorsi plantarflexion intact. Const Vital Signs: 05/06/23 14:56 Temperature 97.7 F L Temperature Source Temporal Pulse Rate 94 Respiratory Rate 18 Blood Pressure 137/93 H Blood Pressure Mean 107 Pulse Ox 98 Oxygen Delivery Method Room Air Positive well nourished and well developed; Negative for cachectic, contractures or unkempt General Appearance ED: well developed and NAD; Negative for unkempt, cachectic, contractures, cyanotic, diaphoretic or pallor Nutritional Appearance: Negative for cachectic HEENT Reports dry mucous membranes Negative for trauma or tenderness Mouth ED: Yes dry mucous membranes Mouth: dry mucous membranes Eyes PERRL and EOMs intact bilaterally General Eye ED: Negative for pale conjunctiva or scleral icterus Neck no lymphadenopathy, supple and no JVD General: Negative for tenderness Lymph Lymphatic: Negative for other Chest Wall inspection of chest normal and palpation of chest normal Chest: Negative for other Resp normal respiratory effort and clear to auscultation bilaterally Effort and Inspection: Negative for retractions Auscultation: Negative for rales, rhonchi or wheezes Cardio regular rate, regular rhythm, S1 normal heart sound, S2 normal heart sound and no murmurs Palpation: Negative for palpable S3 or palpable S4 Rate: Negative for bradycardia or tachycardic GI normal to inspection, nondistended, normoactive bowel sounds, non-tender, non-distended and no masses Inspection: Negative for abdominal distention Auscultation: normoactive bowel sounds Palpation: soft; Negative for tender or guarding Back/Spine no CVA tenderness General Back: Negative for CVA tenderness Cervical Spine: Negative for cervical spine tenderness Thoracic Spine / Upper Back: Negative for thoracic spinal tenderness or paraspinal muscle tenderness Lumbar Spine / Lower Back: Negative for lumbar spinal tenderness Extremity normal to inspection General Extremety ED: Negative for edema or tenderness General Extremity: Negative for edema Neuro No oriented x3 and CN's II-XII intact bilaterally Sensorium / Orientation: alert and orientation impaired; Negative for lethargic or stuporous Motor Exam: strength 5/5 throughout Psych mental status grossly normal Appearance: Negative for unkempt Attitude: No agitated Mood & Affect: Negative for depressed, anxious or tearful Skin no rashes or lesions noted and no wounds General Skin Exam: Negative for jaundice or pallor Lesions: No lesion noted Rashes: No rashes noted Trauma: Negative for abrasion Wounds: Negative for wounds noted MDM MDM MDM Narrative Medical decision making narrative: 47-year-old male sent in from a detention with mental status change. Exam is benign. He may be mildly dehydrated. Screening labs will be obtained. CAT scan of his brain and chest x-ray. Consider infectious etiology. Repeat exam at 4:55 PM patient doing well. He is awake and alert. Clinically looks well. With no significant abnormalities on his labs, chest x-ray, EKG your CAT scan he will be discharged back to the extended care facility. History & Record Review Discussion w/independent historian: EMS personnel and Patient Additional record(s) reviewed:: Prior inpatient record, Prior outpatient record, Prior ED visit and Prior labs Lab Data Attestation: I reviewed the patient's lab results. Lab results narrative: CMP unremarkable. Anion gap of 8. Normal BUN and creatinine. Glucose 130. Liver enzymes normal. UA normal. No nitrites. No white or red cells. No bacteria. CBC shows a white count of 11. H&H of 13 and 14. Platelet count of 270. Consistent with prior CBC. Chest x-ray unremarkable. CT of the brain chronic changes. Labs: Laboratory Results - last 24 hr 05/06/23 05/06/23 05/06/23 15:14 15:14 15:43 WBC Cancelled Corrected WBC Cancelled RBC Cancelled Hgb Cancelled Hct Cancelled MCV Cancelled MCH Cancelled MCHC Cancelled RDW Std Deviation Cancelled RDW Coeff of Deya Cancelled Plt Count Cancelled MPV Cancelled Immature Gran % (Auto) Cancelled Neut % (Auto) Cancelled Lymph % (Auto) Cancelled [place] % (Auto) Cancelled Eos % (Auto) Cancelled Baso % (Auto) Cancelled Absolute Neuts (auto) Cancelled Absolute Lymphs (auto) Cancelled Total Counted Cancelled Neutrophils % (Manual) Cancelled Band Neutrophils % Cancelled Lymphocytes % (Manual) Cancelled Monocytes % (Manual) Cancelled Eosinophils % (Manual) Cancelled Basophils % (Manual) Cancelled Metamyelocytes % Cancelled Myelocytes % Cancelled Promyelocytes % Cancelled Blast Cells % Cancelled Plasma Cell % (Manual) Cancelled Other Cells % Cancelled Nucleated RBC % Cancelled Nucleated RBCs/100 WBC Cancelled Differential Comment Cancelled Diff Path Review Cancelled Hypersegmented Neuts Cancelled Atypical Lymphocytes Cancelled Reactive Lymphocytes Cancelled Smudge Cells Cancelled Toxic Granulation Cancelled Toxic Vacuolation Cancelled Dohle Bodies Cancelled Scott Rods Cancelled Platelet Estimate Cancelled Plt Morphology Comment Cancelled RBC Morphology Cancelled Cancelled Polychromasia Cancelled Hypochromasia Cancelled Poikilocytosis Cancelled Basophilic Stippling Cancelled Anisocytosis Cancelled Microcytosis Cancelled Macrocytosis Cancelled Spherocytes Cancelled Sickle Cells Cancelled Target Cells Cancelled Tear Drop Cells Cancelled Ovalocytes Cancelled Stomatocytes Cancelled Perdomo-[place] Bodies Cancelled Romina Cells Cancelled Bite Cells Cancelled Crenated Cell Cancelled Acanthocytes (Spur) Cancelled Rouleaux Cancelled Schistocytes Cancelled Sodium 135 L Potassium 4.5 Chloride 104 Carbon Dioxide 23.0 Anion Gap 8 BUN 9 Creatinine 0.84 Estim Creat Clear Calc 126.40 Est GFR (MDRD) Af Amer 125 Est GFR (MDRD) Non-Af 104 BUN/Creatinine Ratio 10.7 Glucose 130 H Calcium 9.1 Total Bilirubin 0.50 AST 20 ALT 42 Alkaline Phosphatase 81 Total Protein 7.2 Albumin 3.8 Globulin 3.4 Albumin/Globulin Ratio 1.1 Urine Color Yellow Urine Clarity Clear Urine pH 8.0 Ur Specific Fowler 1.015 Urine Protein 30 H Urine Glucose (UA) Normal Urine Ketones Negative Urine Occult Blood 25 H Urine Nitrite Negative Urine Bilirubin Negative Urine Urobilinogen Normal Ur Leukocyte Esterase Negative Urine RBC 0-5 SEEN Urine WBC 0 SEEN Ur Squamous Epith Cells 0 SEEN Urine Bacteria 0 SEEN Urine Mucus 0 SEEN 05/06/23 15:45 WBC 11.1 H Corrected WBC RBC 4.53 L Hgb 13.4 Hct 40.6 MCV 89.6 MCH 29.6 MCHC 33.0 RDW Std Deviation 40.3 RDW Coeff of Deya 12.3 Plt Count 270 MPV 8.7 Immature Gran % (Auto) 0.500 Neut % (Auto) 75.8 H Lymph % (Auto) 15.9 L [place] % (Auto) 6.5 Eos % (Auto) 1.0 Baso % (Auto) 0.3 Absolute Neuts (auto) 8.4 H Absolute Lymphs (auto) 1.76 Total Counted Neutrophils % (Manual) Band Neutrophils % Lymphocytes % (Manual) Monocytes % (Manual) Eosinophils % (Manual) Basophils % (Manual) Metamyelocytes % Myelocytes % Promyelocytes % Blast Cells % Plasma Cell % (Manual) Other Cells % Nucleated RBC % 0 Nucleated RBCs/100 WBC Differential Comment Diff Path Review Hypersegmented Neuts Atypical Lymphocytes Reactive Lymphocytes Smudge Cells Toxic Granulation Toxic Vacuolation Dohle Bodies Scott Rods Platelet Estimate Plt Morphology Comment RBC Morphology Polychromasia Hypochromasia Poikilocytosis Basophilic Stippling Anisocytosis Microcytosis Macrocytosis Spherocytes Sickle Cells Target Cells Tear Drop Cells Ovalocytes Stomatocytes Perdomo-[place] Bodies [place] Cells Bite Cells Crenated Cell Acanthocytes (Spur) Rouleaux Schistocytes Sodium Potassium Chloride Carbon Dioxide Anion Gap BUN Creatinine Estim Creat Clear Calc Est GFR (MDRD) Af Amer Est GFR (MDRD) Non-Af BUN/Creatinine Ratio Glucose Calcium Total Bilirubin AST ALT Alkaline Phosphatase Total Protein Albumin Globulin Albumin/Globulin Ratio Urine Color Urine Clarity Urine pH Ur Specific Fowler Urine Protein Urine Glucose (UA) Urine Ketones Urine Occult Blood Urine Nitrite Urine Bilirubin Urine Urobilinogen Ur Leukocyte Esterase Urine RBC Urine WBC Ur Squamous Epith Cells Urine Bacteria Urine Mucus Radiography Chest X-Ray - ED: 1 View, Read by ED Physician, Read by Radiologist, Heart, Lungs, Mediastinum, Bony Structures, No Acute Disease and Chronic Changes Diagnostic Testing: Clinical Impression(s) from Imaging Studies Brain CT 05/06/23 15:09 IMPRESSION: Normal unenhanced CT scan of the brain. Electronically Signed: Esdras Greenfield MD at 15:54 EDT , Chest X-Ray 05/06/23 15:09 IMPRESSION: Poor inspiration with some bibasilar atelectasis. Electronically Signed: Esdras Greenfield MD at 15:49 EDT Reading Location ID and State: [facility] / [place] Tel , Service support , Chest x-ray, portable, single view, interpreted both by myself and the radiologist shows a changes no acute process. Bibasilar atelectasis. Rhythm Strip Rhythm Strip: Sinus Rhythm Rate: 91 Ectopy: None EKG Initial EKG: Attestation: I personally reviewed and interpreted this EKG as follows: Interpretation: Sinus Rhythm and No Acute Injury Pattern Comments: Normal sinus rhythm rate of 91 no acute signs of RI or ischemia. Discharge Plan Triage Chief Complaint: Alt LOC Other Complaint: Neuro S/Sx ED Provider: Tr Bravo Dx/Rx/DC Orders Clinical Impression: Acute alteration in mental status, Family history of dementia, Hx of schizophrenia Prescriptions: No Action aspirin 81 MG tablet,delayed release (DR/EC) 81 mg PO DAILY Patient Comments: stop 5 days preop benztropine 1 MG tablet 1 mg PO TID Ziprasidone Hcl [Geodon] 40 MG capsule 80 mg PO TID nabumetone 750 MG tablet 750 mg PO BID Patient Comments: on hold for or trazodone 50 MG tablet 200 mg PO QHS oxcarbazepine [Trileptal] 300 MG tablet 900 mg PO QHS levothyroxine 88 MCG tablet 88 mcg PO QHS lithium carbonate 300 MG capsule 300 mg PO TID lorazepam 1 MG tablet 1 mg PO TID clozapine 200 MG tablet 200 mg PO BID haloperidol 5 MG tablet 5 mg PO TID lorazepam 2 MG/ML syringe 1 mg IV Q6H PRN (Reason: Agitation) acetaminophen 500 MG tablet 500 mg PO TID ziprasidone HCl 20 MG capsule 20 mg PO Q6H PRN (Reason: Agitation) magnesium hydroxide 30 ML suspension 30 ml PO DAILY PRN PRN (Reason: Constipation) docusate sodium 100 MG capsule 100 mg PO BID lorazepam 1 MG tablet 1 mg PO Q6H PRN (Reason: Agitation) ziprasidone mesylate 20 MG/ML recon soln 20 mg IM Q6H PRN (Reason: Agitation) lactulose 10 GM/15 ML solution 15 ml PO TID acetaminophen 325 MG capsule 325 mg PO Q6H PRN (Reason: Fever) cholecalciferol (vitamin D3) 2,000 UNIT capsule 2,000 unit PO DAILY nicotine (polacrilex) 2 MG mini lozenge 2 mg PO Q2H PRN (Reason: Smoking Cessation) doxycycline hyclate 100 MG capsule 100 mg PO BID Qty: 14 0RF Primary Care Provider: Zeb Cervantes Referrals: Zeb Cervantes [[facility]] - 3-5 Days if not improving Activity Restrictions/Additional Instructions: Patient's labs including: CBC, CMP and urinalysis were normal. His EKG was unremarkable. His chest x-ray and CAT scan of his brain were unremarkable. We cannot find anything specifically acutely wrong. Disposition Disposition: Home, Self Care
[2023-05-06 15:18] VITALS: BMI 30.4
[2023-05-06 15:41] LABS: ALB/GLOB Ratio 1.1 RATIO (0.9-2.4); AST(SGOT) 20 U/L (15-37); Alanine Aminotransfer ALT/SGPT 42 U/L (16-61); Albumin, Serum 3.8 g/dL (3.2-5.0); Alkaline Phosphatase 81 U/L (45-117); Anion Gap 8 (5-15); BUN 9 mg/dL (7-18); BUN/Creat Ratio 10.7 RATIO (10-20); Calcium,Total 9.1 mg/dL (8.5-10.1); Chloride 104 mmol/L (98-107); Creatinine, Serum 0.84 mg/dL (0.70-1.30); EST Glomerular Filtration Rate 104 mL/min (>60); Est Glom Filt Rate - Afr Amer 125 mL/min (>60); Globulin 3.4 g/dL (2.2-4.2); Glucose 130 mg/dL (74-106); Potassium 4.5 mmol/L (3.5-5.1); Protein, Total 7.2 g/dL (6.4-8.2); Sodium Level 135 mmol/L (136-145)
[2023-05-06] MEDS: 0.9% Normal Saline (1000mL) 1,000 ML 1000 ML IV (15:46)
[2023-05-06 15:51] LABS: Bacteria 0 SEEN /hpf (None Seen); Mucous, Urine 0 SEEN /hpf (<or=2+); Squamous Epithelial Cells - UA 0 SEEN /hpf (0-5); White Blood Cells 0 SEEN /hpf (0-5)
[2023-05-06 15:52] LABS: Absolute Lymphocyte Count 1.76 X10^3/uL (0.83-4.51); Absolute Neutrophil Count 8.4 X10^3/uL (2.0-7.7); Basophil# 0.03 X10^3/uL; Basophil% 0.3 % (0-1); Eosinophil# 0.11 X10^3/uL; Hematocrit 40.6 % (40-54); Hemoglobin 13.4 g/dL (13.0-16.5); Lymphocyte # 1.76 X10^3/ul (0.83-4.51); Lymphocyte % 15.9 % (19-41); Mean Corpuscular Hgb 29.6 pg (27.0-32.0); Mean Corpuscular Volume 89.6 fL (80-94); Mean Platelet Vol. 8.7 fl (6.2-12.0); Monocyte# 0.72 X10^3/uL; Monocyte% 6.5 % (0-10); NRBC Flagged by Analyzer 0 % (0-5); Neutrophil # 8.43 X10^3/uL (2.7-7.7); Neutrophil % 75.8 % (47-70); Platelet Count 270 K/mm3 (150-450); RBC Distribution Width CV 12.3 % (11.6-14.6); RBC Distribution Width SD 40.3 fl (35.1-43.9); Red Blood Count 4.53 M/mm3 (4.6-6.2); White Blood Count 11.1 K/mm3 (4.4-11.0)
[2023-05-06 16:39] LABS: Color, Urine Yellow (Yellow); Glucose, Dipstick Normal (Normal); Ketone-Dipstick Negative (Negative); Leukocyte Esterase-Dipstick Negative /ul (Negative); Nitrite-Dipstick Negative (Negative); Occult Blood-Urine 25 /ul (Negative); Protein-Dipstick 30 mg/dl (Negative); Specific Gravity, Urine 1.015 (1.002-1.030); Urine Bilirubin Dipstick Negative (Negative); Urine Clarity Clear (Clear); Urine Urobilinogen Normal (Normal)
[2023-05-06 16:40] LABS: Red Blood Cells-Urine 0-5 SEEN /hpf (0-5)
[2023-05-06 17:11] VITALS: BP 158/77; PULSE 79; RESP 16; O2SAT 98
--- NOTE | 2023-05-06 17:41 | ED.RN ---
THIS RN SPOKE WITH ARCADIO CRUZ ON DISCHARGE OF PT.
== END 2023-05-06 17:55 | disposition home or self-care (01) ==
PROVIDERS: Emergency Provider Emergency Medicine; PCP Family Medicine; Visit Provider Emergency Medicine
DX: R41.82 Altered mental status, unspecified (principal); F17.210 Nicotine dependence, cigarettes, uncomplicated
CPT/HCPCS: 70450; 71045; 80053; 81001; 85025; 93005; 96360; 96361; 99285; J7030